=== PATIENT | female | born 1960 | race African-American/Black ===

== ENCOUNTER 2016-11-02 12:07 | Day surgery (SDC) | payer MEDICAID | END 2016-11-02 16:10 | disposition home or self-care (01) | LOC: D.OPS 12:07 | DX: Z12.11 Encounter for screening for malignant neoplasm of colon (principal); E11.9 Type 2 diabetes mellitus without complications; K21.9 Gastro-esophageal reflux disease without esophagitis; Z01.812 Encounter for preprocedural laboratory examination; D12.3 Benign neoplasm of transverse colon ==